=== PATIENT | male | born 1990 ===

== ENCOUNTER → 2023-06-24 | Outpatient (CLI) | payer MEDICAID ==
[~2023-06-24] MED LIST: DOBUTamine 1000MCG/ML 250 ML IV ONE; DOBUTamine 1000MCG/ML 250 ML IV SCH
[2023-06-24 14:40] VITALS: BP_SYST 128; BP_SYST 147; BP_DIAS 58; BP_DIAS 73; PULSE 88; PULSE 89; RESP 18; O2SAT 96; O2SAT 97
== END | disposition home or self-care (01) ==
LOC: Rad HDHVI 14:08
PROVIDERS: ATTEND Internal Medicine Cardiovascular Disease
DX: Z02.79 Encounter for issue of other medical certificate (principal); I10 Essential (primary) hypertension; E66.9 Obesity, unspecified
CPT/HCPCS: 93005; 93306; 96365; G0463; J1250